=== PATIENT | male | born 1950 | race Caucasian/White ===

== ENCOUNTER → 2019-12-22 | Outpatient (CLI) | payer MEDICARE, BC | END | disposition home or self-care (01) | LOC: LABWHC1 08:04 | PROVIDERS: ATTEND Surgery Plastic and Reconstructive Surgery | DX: Z11.59 Encounter for screening for other viral diseases (principal) ==

== ENCOUNTER 2019-12-27 07:12 | Day surgery (SDC) | payer BC, MEDICARE ==
[2019-12-22 12:57] VITALS: BMI 29.6
[~2019-12-27 07:12] MED LIST: LACTATED RINGERS 1,000 ML IV SCH
[2019-12-27 07:30] VITALS: RESP 16; TEMP 97
[2019-12-27] MEDS ORDERED: LIDOCAINE 1% (10MG/ML) FOR IV START INTRADERMA ONE (07:34)
--- NOTE | 2019-12-27 08:07 | P.GSHP ---
History of Present Illness H&P Date: 12/27/19 CHIEF COMPLAINT: Colon screen HISTORY OF PRESENT ILLNESS: The patient is a 69-year-old male who presents for colon screen. Lower endoscopy was offered for further evaluation and management. PAST MEDICAL HISTORY: Please see list. PAST SURGICAL HISTORY: Please see list. MEDICATIONS: Please see list. ALLERGIES: Please see list. SOCIAL HISTORY: No illicit drug use FAMILY HISTORY: No reports of Crohn disease or ulcerative colitis. REVIEW OF ORGAN SYSTEMS: CONSTITUTIONAL: No reports of fevers or chills. PHYSICAL EXAM: VITAL SIGNS: Stable GENERAL: Well-developed pleasant in no acute distress. HEENT: No scleral icterus. Extraocular movements grossly intact. Moist buccal mucosa. NECK: Supple without lymphadenopathy. CHEST: Unlabored respirations. Equal bilateral excursions. CARDIOVASCULAR: Regular rate and rhythm. Distal 2+ pulses. ABDOMEN: Soft, nontender, nondistended. MUSCULOSKELETAL: No clubbing, cyanosis, or edema. ASSESSMENT: 1. Colon screen. PLAN: 1. Recommend proceeding with a lower endoscopy Past Medical History Past Medical History: Hyperlipidemia, Hypertension History of Any Multi-Drug Resistant Organisms: None Reported Additional Past Surgical History / Comment(s): COLONOSCOPY. REPAIR RT RETINAL TEAR Past Anesthesia/Blood Transfusion Reactions: No Reported Reaction Smoking Status: Never smoker - Past Family History Mother Family Medical History: No Reported History Medications and Allergies Home Medications Medication Instructions Recorded Confirmed Type Aspirin [Adult Low Dose Aspirin EC] 81 mg PO DAILY 12/22/19 12/27/19 History Fenofibrate [Lofibra] 160 mg PO DAILY 12/22/19 12/27/19 History Losartan Potassium 100 mg PO HS 12/22/19 12/27/19 History Pravastatin Sodium [Pravachol] 40 mg PO HS 12/22/19 12/27/19 History Allergies Allergy/AdvReac Type Severity Reaction Status Date / Time iodine Allergy Rash/Hives Verified 12/27/19 07:31 Surgical - Exam Vital Signs Temp Pulse Resp BP Pulse Ox 97 F L 76 16 151/86 97 12/27/19 07:29 12/27/19 07:29 12/27/19 07:29 12/27/19 07:29 12/27/19 07:29
[2019-12-27] MEDS ORDERED: PROPOFOL 10 MG/ML 20 ML VIAL IV ONE (08:09)
--- NOTE | 2019-12-27 08:27 | P.PCN ---
Date of Procedure: 12/27/19 Description of Procedure: PREOPERATIVE DIAGNOSIS: Personal history of colon polyps Family history malignant colon polyps POSTOPERATIVE DIAGNOSIS: Personal history of colon polyps Family history malignant colon polyps Tubular adenoma cecum Pandiverticulosis Sigmoid diverticulosis OPERATION: Colonoscopy to the ileocecal valve and appendiceal orifice. Colonoscopy with hot snare polypectomy SURGEON: Astrid Lee MD. ANESTHESIA: MAC. INDICATIONS: The patient is an 69-year-old male who presents family history of malignant colon polyps and personal history of colon polyps. Last colonoscopy over 5 years. Benefits and risks were described and informed consent was obtained. DESCRIPTION OF PROCEDURE: The patient had undergone Suprep. He had been brought into the operating room and laid in the left lateral decubitus position. After adequate intravenous sedation, the rectum was examined with 2% lidocaine jelly. The prostate was unremarkable. External hemorrhoids were encountered. The rectal tone was within normal limits. No lesions were palpated in the rectal vault. An Olympus colonoscope was advanced until the ileocecal valve and appendiceal orifice were clearly viewed. The prep was excellent. Pandiverticulosis including severe sigmoid diverticulosis was encountered. Cecum colon adenoma was snare polypectomy. No evidence of focal colitis was found. Retroflexion of the scope demonstrated grade 1 internal hemorrhoids without active bleeding or inflammation. The colon was desufflated. The patient had tolerated the procedure well. Withdrawal time was over 6 minutes. FINDINGS: Aronchick preparation quality scale 1 (1-5) Internal hemorrhoids, grade 1 No external hemorrhoids No arteriovenous malformations. Pandiverticulosis Severe sigmoid diverticulosis Removal of 1 polyp - Snare polypectomy at cecum, 8 mm tubulovillous adenoma polyp. No focal colitis. RECOMMENDATIONS: Repeat colonoscopy 3 years, 2022 Plan - Discharge Summary Discharge Rx Participant: No New Discharge Prescriptions: Continue Pravastatin Sodium [Pravachol] 40 mg PO HS Fenofibrate [Lofibra] 160 mg PO DAILY Losartan Potassium 100 mg PO HS Aspirin [Adult Low Dose Aspirin EC] 81 mg PO DAILY Discharge Medication List Aspirin [Adult Low Dose Aspirin EC] 81 mg PO DAILY 12/22/19 [History] Fenofibrate [Lofibra] 160 mg PO DAILY 12/22/19 [History] Losartan Potassium 100 mg PO HS 12/22/19 [History] Pravastatin Sodium [Pravachol] 40 mg PO HS 12/22/19 [History] Follow up Appointment(s)/Referral(s): Astrid Lee MD [STAFF PHYSICIAN] - As Needed Patient Instructions/Handouts: *Surgery [facility] - (Anesthesia) Endoscopy Discharge Instructions, Diverticulosis (GEN), Colorectal Polyps (DC), Diverticulosis Diet (GEN) Activity/Diet/Wound Care/Special Instructions: Repeat colonoscopy in 3 years, 2022 Discharge Disposition: HOME SELF-CARE
[2019-12-27 08:52] VITALS: BP 134/91; PULSE 64
--- NOTE | 2019-12-29 09:54 | CDI ---
Outpatient Documentation Clarification Form Date: 12/29/19 CDS/Environmental Health Technologist Name: Mago Mcfarland Phone: If any questions, call Deysi Burns Commercial [employer] Estate Paralegal at [phone] Patient Name: Peter Cunha Admit Date: 12/27/19 Discharge Date: 12/27/19 ATTENTION: The [facility] Coding Staff appreciate your assistance in clarifying documentation. Please respond to the clarification below the line at the bottom and electronically sign. The [facility] Coding staff will review the response and follow-up if needed. Please note: Queries are made part of the Legal Health Record. If you have any questions, please contact the Commercial Real Estate Paralegal. Dear Dr. Lee, Please provide clarification to the diagnosis external hemorrhoids. The Operative report under Description of Procedure states external hemorrhoids were encountered. Then on Operative report under Findings, it is documented NO external hemorrhoids. Please clarify. Thank you for your kind consideration FINDINGS: Aronchick preparation quality scale 1 (1-5) Internal hemorrhoids, grade 1 External hemorrhoids, grade 2 No arteriovenous malformations. Pandiverticulosis Severe sigmoid diverticulosis Removal of 1 polyp - Snare polypectomy at cecum, 8 mm tubulovillous adenoma polyp. No focal colitis. Note amended KM 12/29/19 @ 13:17 MTDD
== END 2019-12-27 08:59 | disposition home or self-care (01) ==
LOC: ORWHC2ENDO 07:12
PROVIDERS: ATTEND Surgery Plastic and Reconstructive Surgery
DX: Z12.11 Encounter for screening for malignant neoplasm of colon (principal); D12.0 Benign neoplasm of cecum; K57.30 Diverticulosis of large intestine without perforation or abscess without bleeding; K21.9 Gastro-esophageal reflux disease without esophagitis; K64.0 First degree hemorrhoids; K64.1 Second degree hemorrhoids; Z86.010 Personal history of colon polyps; Z80.0 Family history of malignant neoplasm of digestive organs; E78.5 Hyperlipidemia, unspecified; I10 Essential (primary) hypertension; Z98.890 Other specified postprocedural states; Z79.82 Long term (current) use of aspirin; Z79.899 Other long term (current) drug therapy; Z91.048 Other nonmedicinal substance allergy status
CPT/HCPCS: 88305; 45385; J2704

== ENCOUNTER → 2021-06-27 | Outpatient (CLI) | payer OTHER, MEDICARE ==
--- NOTE | 2021-06-27 09:54 | US ---
EXAMINATION TYPE: US duplex aorta DATE OF EXAM: 06/27/2021 COMPARISON: NONE CLINICAL HISTORY: Z13.6 Aneurysm screening. EXAM MEASUREMENTS: Abdominal Aorta: TRV X AP cm Proximal: 3.0.x2.9cm Mid: 2.3x2.1cm Distal: 2.3x2.2cm Bifurcation: 1.2x1.5 1.2x1.1cm Small amount of plaque seen throughout the aorta. Aorta tapers normally through its visualized course IMPRESSION: 1. No abdominal aortic aneurysm by screening ultrasound.
== END | disposition home or self-care (01) ==
LOC: RADUSWWP 08:40
PROVIDERS: ATTEND Family Medicine
DX: Z13.6 Encounter for screening for cardiovascular disorders (principal)
CPT/HCPCS: 93979

== ENCOUNTER 2023-01-13 08:14 | Day surgery (SDC) | payer OTHER, MEDICARE ==
[2023-01-08 16:10] VITALS: BMI 28.8
[2023-01-13] MEDS ORDERED: LACTATED RINGERS 1,000 ML IV ONE (08:37)
[2023-01-13 08:39] VITALS: TEMP 97.7
--- NOTE | 2023-01-13 08:46 | P.GSHP ---
History of Present Illness H&P Date: 01/13/23 CHIEF COMPLAINT: Colon screen HISTORY OF PRESENT ILLNESS: The patient is a 72-year-old male who presents for colon screen. Lower endoscopy was offered for further evaluation and management. PAST MEDICAL HISTORY: Please see list. PAST SURGICAL HISTORY: Please see list. MEDICATIONS: Please see list. ALLERGIES: Please see list. SOCIAL HISTORY: No illicit drug use FAMILY HISTORY: No reports of Crohn disease or ulcerative colitis. REVIEW OF ORGAN SYSTEMS: CONSTITUTIONAL: No reports of fevers or chills. PHYSICAL EXAM: VITAL SIGNS: Stable GENERAL: Well-developed pleasant in no acute distress. HEENT: No scleral icterus. Extraocular movements grossly intact. Moist buccal mucosa. NECK: Supple without lymphadenopathy. CHEST: Unlabored respirations. Equal bilateral excursions. CARDIOVASCULAR: Regular rate and rhythm. Distal 2+ pulses. ABDOMEN: Soft, nontender, nondistended. MUSCULOSKELETAL: No clubbing, cyanosis, or edema. ASSESSMENT: 1. Colon screen. PLAN: 1. Recommend proceeding with a lower endoscopy Past Medical History Past Medical History: Hyperlipidemia, Hypertension Additional Past Medical History / Comment(s): SEASONAL ALLERGIES History of Any Multi-Drug Resistant Organisms: None Reported Additional Past Surgical History / Comment(s): COLONOSCOPY. REPAIR RT RETINAL TEAR Past Anesthesia/Blood Transfusion Reactions: No Reported Reaction Smoking Status: Never smoker - Past Family History Mother Family Medical History: No Reported History Medications and Allergies Home Medications Medication Instructions Recorded Confirmed Type Aspirin [Adult Low Dose Aspirin EC] 81 mg PO HS 12/22/19 01/08/23 History Fenofibrate [Lofibra] 160 mg PO DAILY 12/22/19 01/08/23 History Losartan Potassium 100 mg PO HS 12/22/19 01/08/23 History Atorvastatin [Lipitor] 40 mg PO HS 01/08/23 01/08/23 History Allergies Allergy/AdvReac Type Severity Reaction Status Date / Time iodine Allergy Rash/Hives Verified 01/08/23 16:02 Surgical - Exam Vital Signs Temp Pulse Resp BP Pulse Ox 97.7 F 68 16 178/94 99 01/13/23 08:37 01/13/23 08:37 01/13/23 08:37 01/13/23 08:37 01/13/23 08:37
[2023-01-13] MEDS ORDERED: PROPOFOL 10 MG/ML 20 ML VIAL IV ONE (09:35)
[2023-01-13] MEDS ORDERED: IV FLUID CONTINUATION 800 ML IV ONE (09:58)
--- NOTE | 2023-01-13 10:22 | P.PCN ---
Date of Procedure: 01/13/23 Description of Procedure: PREOPERATIVE DIAGNOSIS: Personal history of colon polyps Colonoscopy screening POSTOPERATIVE DIAGNOSIS: Tubular adenoma, rectum Pandiverticulosis Sigmoid diverticulosis Internal hemorrhoids, grade 2 OPERATION: Colonoscopy to the ileocecal valve and appendiceal orifice, cecum Colonoscopy with cold forceps biopsy SURGEON: Astrid Lee MD. ANESTHESIA: MAC. INDICATIONS: The patient is a 72-year-old male who presents personal history of colon polyps. Last colonoscopy 5 years. Benefits and risks were described and informed consent was obtained. DESCRIPTION OF PROCEDURE: The patient had undergone Sutab prep. The patient had been brought into the operating room and laid in the left lateral decubitus position. After adequate intravenous sedation, the rectum was examined with 2% lidocaine jelly. The prostate was unremarkable. External hemorrhoids were encountered. The rectal tone was within normal limits. No lesions were palpated in the rectal vault. An Olympus colonoscope was advanced until the cecum, ileocecal valve and appendiceal orifice were clearly viewed. The prep was fair. Sigmoid diverticulosis is pandiverticulosis was encountered. Colonic polyps were found and removed. No evidence of focal colitis was found. Retroflexion of the scope demonstrated grade 2 internal hemorrhoids without active bleeding or inflammation. The colon was desufflated. The patient had tolerated the procedure well. Withdrawal time was over 6 minutes. FINDINGS: Aronchick preparation quality scale 2+ (1-5) Internal hemorrhoids, grade 2 External hemorrhoids, grade 2. No arteriovenous malformations. Sigmoid diverticulosis Pandiverticulosis Removal of 1 polyp: - Cold forceps biopsy at 10 cm from the anal verge, 4 mm polyp, rectum No focal colitis. RECOMMENDATIONS: Repeat colonoscopy in 3 years, 2025 Plan - Discharge Summary Discharge Rx Participant: No New Discharge Prescriptions: Continue Fenofibrate [Lofibra] 160 mg PO DAILY Losartan Potassium 100 mg PO HS Aspirin [Adult Low Dose Aspirin EC] 81 mg PO HS Atorvastatin [Lipitor] 40 mg PO HS Discharge Medication List Aspirin [Adult Low Dose Aspirin EC] 81 mg PO HS 12/22/19 [History] Fenofibrate [Lofibra] 160 mg PO DAILY 12/22/19 [History] Losartan Potassium 100 mg PO HS 12/22/19 [History] Atorvastatin [Lipitor] 40 mg PO HS 01/08/23 [History] Follow up Appointment(s)/Referral(s): Astrid Lee MD [STAFF PHYSICIAN] - As Needed Patient Instructions/Handouts: Diverticulosis Diet (GEN), Diverticulosis (DC), Colorectal Polyps (GEN) Activity/Diet/Wound Care/Special Instructions: Repeat colonoscopy in 3 years, 2025 Discharge Disposition: HOME SELF-CARE
[2023-01-13] MEDS ORDERED: LIDOCAINE 1% (10MG/ML) FOR IV START INTRADERMA PRN (10:23)
[2023-01-13] MEDS ORDERED: LACTATED RINGERS 1,000 ML IV SCH (10:23)
[2023-01-13 10:30] VITALS: BP 130/78; PULSE 64; RESP 20
== END 2023-01-13 10:39 | disposition home or self-care (01) ==
LOC: ORWHC2ENDO 08:14
PROVIDERS: ATTEND Surgery Plastic and Reconstructive Surgery
DX: Z12.11 Encounter for screening for malignant neoplasm of colon (principal); K63.5 Polyp of colon; K57.30 Diverticulosis of large intestine without perforation or abscess without bleeding; K64.1 Second degree hemorrhoids; K64.4 Residual hemorrhoidal skin tags; I10 Essential (primary) hypertension; E78.5 Hyperlipidemia, unspecified; Z79.82 Long term (current) use of aspirin; Z79.899 Other long term (current) drug therapy; Z91.048 Other nonmedicinal substance allergy status
CPT/HCPCS: 88305; 45380; J2704

== ENCOUNTER 2024-05-10 05:53 | Day surgery (SDC) | payer MEDICARE, OTHER ==
[2024-05-08 09:34] VITALS: BMI 29.6
[2024-05-10] MEDS ORDERED: ALPRAZolam 0.25 MG TAB PO PRN (06:06)
[2024-05-10] MEDS ORDERED: HEPARIN SODIUM,PORCINE (1 ML) 2,500 UNIT in SODIUM CHLORIDE 0.9% 250 ML IRRIGATION PRN (06:06)
[2024-05-10] MEDS ORDERED: NITROGLYCERIN SL TABS 0.4 MG TAB SUBLINGUAL PRN ×2 (06:06→09:28)
[2024-05-10] MEDS ORDERED: ALPRAZolam 0.5 MG TAB PO PRN (06:06)
[2024-05-10] MEDS ORDERED: HEPARIN SODIUM,PORCINE 10,000 UNIT in SODIUM CHLORIDE 0.9% 1,000 ML IRRIGATION PRN (06:06)
[2024-05-10] MEDS: SODIUM CHLORIDE 0.9% 1,000 ML in EMPTY BAG 1 BAG IV SCH ×2 (06:39→12:00)
[2024-05-10] MEDS: IV FLUID CONTINUATION 1,000 ML IV ONE ×2 (06:40→09:31)
[2024-05-10] MEDS: fentaNYL (PF) 50 MCG/1 ML VIAL IVP ONE (07:52)
[2024-05-10] MEDS: LIDOCAINE 1% INJ 10MG/ML (20 ML MDV) SQ ONE ×2 (07:55)
[2024-05-10] MEDS: HEPARIN SODIUM 1,000 UN/ML (10ML VL) IVP ONE (08:21)
[2024-05-10] MEDS: NITROGLYCERIN 1000MCG/10ML SYRINGE INTRACORON ONE (08:26)
[2024-05-10] MEDS: CLOPIDOGREL 75 MG TAB PO ONE (08:35)
[2024-05-10] MEDS: IOPAMIDOL-370 100ML BTL INJ ONE ×2 (08:35→09:20)
[2024-05-10] MEDS ORDERED: ZOLPIDEM 5 MG TAB PO PRN (09:28)
[2024-05-10] MEDS ORDERED: ATROPINE SULFATE 0.1 MG/ML 10ML SYRINGE IV PRN (09:28)
[2024-05-10] MEDS ORDERED: MAG HYDROX/AL HYDROX/SIMETH 30 ML CUP PO PRN (09:28)
[2024-05-10] MEDS ORDERED: RX INFO: IV CONTRAST WAS GIVEN 1 EACH MISC MISCELLANE PRN (09:28)
--- NOTE | 2024-05-10 09:39 | P.CARDCATH ---
Date of Procedure: 05/10/24 Description of Procedure: Cardiac Catheterization: The patient is a 74-year-old male with a history of hypertension, hyperlipidemia, coronary disease by calcium scoring and symptoms of fatigue who had an abnormal MPI with inferior wall moderate ischemia. Recommendations were made regarding cardiac catheterization, the risks and the complications were discussed with the patient who is in full understanding and agreement. Procedure Description: Patient was brought to manager cath lab in fasting semi-sedated state after receiving Fentanyl and Benadryl achieiving moderate conscious sedated state. Using Xylocaine Anesthesia and micropuncture technique, a 6-Armenian sheath was introduced in the right femoral artery . Attempt to cannulate the right radial artery were unsuccessful. Subsequently, selective coronary angiography was performed using a 6-Armenian 4 bend Celestina catheter. Multiple views of the coronary artery including hemiaxial views were obtained. The 6 Armenian pigtail catheter was used to cross the aortic valve and LVEDP was calculated. PCI: After removing the catheters a 6 Armenian FL 4 guiding catheter was used to cannulate the left main. A pressure wire X was introduced across the left main and RFR was measured at 0.94. Subsequently the catheter was removed and an AL 0.75 guiding catheter was introduced into the system and after cannulating the right coronary ostium a 0.014 BMW J-wire was positioned in the distal RCA. Attempt to advanced a [employer] eye IVUS was unsuccessful. The catheter was removed and a 2.5 x 12 mm NC trek balloon was advanced and 2 inflation at 10 jacoby were done. Subsequently the IVUS was advanced and showed significant calcification with an arc measuring about 180 degree with significant stenosis. After removing the IVUS catheter 3.0 x 12 mm NC trek balloon was advanced and 2 inflations at 10 jacoby were done. Following that a 6 Armenian guide liner was introduced and with the help of the guide liner a 4.5 x 28 mm Xience cat point stent was advanced and deployed at 16 jacoby. Proximal to that stent another 4.5 x 15 mm Xience cat point stent was deployed. Subsequently repeat IVUS imaging were obtained and revealed an minimal luminal area of above 10 mm. The diameter of the vessel was measured at 5 mm. At that point a 5.0 x 12 mm NC trek balloon was advanced and inflations at 10 jacoby were done. After the last inflation the wire was removed images were obtained and revealed successful stenting. Following that, catheter and sheath were removed. Hemostasis was obtained with deployment of an Angio-Seal. There was no immediate complication. Patient was returned to room in stable condition. Of note, the patient received a total of 9000 units of intravenous heparin as well as a loading dose of clopidogrel . His ACT was monitored. He had EKG changes but no chest discomfort with the inflations. Findings: Fluoroscopy: Significant calcifications of the arteries was noted. Left main: This is a large size vessel, bifurcating into LAD and left circumflex. The distal left main has a 30 to 40% plaque, the rest of the vessel has no high-grade stenosis LAD: This is a moderately sized vessel giving rise to a large diagonal branch proximally. The LAD tapers distally. It has mild intimal disease of 10 to 20% with no high-grade stenosis Left circumflex: This is a nondominant vessel giving rise to a moderately sized obtuse marginal branch that has intimal disease of 20 to 30% with no high-grade stenosis RCA: This is a large dominant vessel bifurcating into PDA and PLV. The PDA reaches to the inferoapical segment. The mid RCA has a long segment of stenosis with a area up to 70%, heavily calcified. There is moderate disease prior to the bifurcation. The PDA and PLV have mild obstructive disease Left Ventriculogram: Not performed Hemodynamics: There was no gradient across the aortic valve, LVEDP was 15-18 mmHg Conclusion: 1. Calcified coronary arteries 2. Borderline distal left main disease with normal RFR of 0.93 3. Severe disease in the long segment of the RCA 4. Mild disease in the LAD and left circumflex 5. Successful stenting of the mid RCA with reduction of stenosis from 80% to 0% using IVUS imaging and with ANN-3 flow Recommendations: The patient will continue on aspirin and clopidogrel without any interruption for 6 months in addition to aggressive coronary risk modification, maintaining LDL below 70 mg/dL the findings and the recommendations were discussed with the patient and the family and they were in full understanding and agreement. Duration of sedation is 84 minutes.
[2024-05-10] MEDS: ASPIRIN 325 MG TAB PO ONE (16:03)
[2024-05-10] MEDS: ATORVASTATIN 80 MG TAB PO ONE (16:04)
[2024-05-10] MEDS: LOSARTAN 50 MG TAB PO SCH (20:15)
[2024-05-10] MEDS: ATORVASTATIN 40 MG TAB PO SCH (20:15)
[2024-05-11 07:06] LABS: Basophils % (A) 0 %; Eosinophils # (A) 0.1 k/uL (0-0.7); Eosinophils % (A) 1 %; HCT 42.8 % (39.0-53.0); HGB 14.9 gm/dL (13.0-17.5); Lymphocytes # (A) 2.2 k/uL (1.0-4.8); Lymphocytes % (A) 25 %; MCHC 34.8 g/dL (31.0-37.0); MCV 88.9 fL (80.0-100.0); Mean Platelet Volume 7.6; Monocytes # (A) 0.3 k/uL (0-1.0); Monocytes % (A) 4 %; Neutrophils # (A) 6.1 k/uL (1.3-7.7); Neutrophils % (A) 69 %; Platelet Count 182 k/uL (150-450); RBC 4.81 m/uL (4.30-5.90); RDW 13.4 % (11.5-15.5); WBC 8.9 k/uL (3.8-10.6)
[2024-05-11 07:31] LABS: African American GFR (CKD) 80 (>60 ml/min/1.73 sqM); Anion Gap 8 mmol/L; Blood Urea Nitrogen 20 mg/dL (9-20); Calcium 8.9 mg/dL (8.4-10.2); Carbon Dioxide 21 mmol/L (22-30); Chloride 110 mmol/L (98-107); Glucose 88 mg/dL (74-99); Non-African American GFR(CKD) 70 (>60 ml/min/1.73 sqM); Potassium 4.2 mmol/L (3.5-5.1); Sodium 139 mmol/L (137-145)
--- NOTE | 2024-05-11 07:45 | P.PN ---
Subjective Progress Note Date: 05/11/24 PROGRESS NOTE The patient is a 74-year-old male who presented with symptoms of progressive dyspnea and had an abnormal MPI. He underwent cardiac catheterization was found to have a borderline left main disease with normal RFR. He underwent stenting of the mid RCA. He is feeling well this morning. He denies any chest discomfort, dizziness or palpitations. Medications: Aspirin, losartan 100 mg daily, atorvastatin 40 mg daily, clopidogrel 75 mg daily. PHYSICAL EXAMINATION: Blood pressure 110/70 heart rate 60 LUNGS: Clear to auscultation HEART: Regular rate and rhythm, S1, S2. No S3. Systolic ejection murmur ABDOMEN: Soft, nontender, no organomegaly EXTREMETIES: No edema, right groin no hematoma LAB: BUN 20, creatinine 1.05, hemoglobin 14.9 IMPRESSION: 1. Status post stenting of the RCA 2. Mild disease in the distal left main 3. Hypertension 4. Hyperlipidemia PLAN: 1. Continue medical therapy 2. Increase physical activity 3. Discharge home today 4. Follow-up as an outpatient Objective - Vital Signs Vital signs: Vital Signs Temp 97.7 F 05/11/24 02:27 Pulse 56 L 05/11/24 02:27 Resp 16 05/11/24 02:27 BP 110/79 05/11/24 02:27 Pulse Ox 94 L 05/11/24 07:34 FiO2 Intake & Output 05/10/24 05/11/24 05/11/24 18:59 06:59 18:59 Intake Total 518 Balance 518 Intake: IV 400 Oral 118 Other: Voiding Method Toilet # Voids 1 2 - Labs CBC & Chem 7: 05/11/24 06:25 05/11/24 06:25 Labs: Abnormal Lab Results - Last 24 Hours (Table) 05/11/24 Range/Units 06:25 Chloride 110 H (98-107) mmol/L Carbon Dioxide 21 L (22-30) mmol/L
[2024-05-11] MEDS: ASPIRIN 81 MG PO SCH (07:52)
[2024-05-11] MEDS: CLOPIDOGREL 75 MG TAB PO SCH (07:53)
[2024-05-11 08:06] VITALS: BP 131/79; PULSE 55; RESP 18; TEMP 97.5
== END 2024-05-11 10:30 | disposition home or self-care (01) ==
LOC: CATHCVL 05:53 → 6NMEDSUR 11:48 → CATHCVL 05-11 10:30
PROVIDERS: ATTEND Internal Medicine Interventional Cardiology
DX: I25.10 Atherosclerotic heart disease of native coronary artery without angina pectoris (principal); I10 Essential (primary) hypertension; E78.2 Mixed hyperlipidemia; Z95.5 Presence of coronary angioplasty implant and graft; Z79.02 Long term (current) use of antithrombotics/antiplatelets; Z79.82 Long term (current) use of aspirin; Z79.899 Other long term (current) drug therapy
CPT/HCPCS: 94760; 92978; 93458; 93799; 80048; 85025; C9600; C1769 ×4; C1760; C1887 ×3; C1894 ×2; C1753; C1874 ×2; C1725 ×4; J2003; J1644; Q9967; J3010; J2305